=== PATIENT | female | born 1965 | race Caucasian/White ===

== ENCOUNTER 2018-02-23 12:19 | Emergency (ER) | payer BC ==
--- NOTE | 2018-02-23 13:10 | UC ---
Lower Extremity/Ankle HPI - HPI Summary HPI Summary: 52 y/o female with PMH- HTN, GERD presents after fall on while taking out trash, no STEINBERG, no LOC, denies head trauma, + left leg pain, posterior leg and left knee pain. no knee swelling, + h/o menisectomy L knee several years ago. no ankle pain. Mild hip pain, no back pain. no loss of bowel or bladder function. - History of Current Complaint Stated Complaint: S/P FALL LEFT KNEE/HIP PAIN Time Seen by Provider: 02/23/18 12:41 Hx Obtained From: Patient ?: No Onset/Duration: Sudden Onset, Lasting Days Severity Initially: Severe Severity Currently: Moderate Aggravating Factor(s): Standing, Ambulation Alleviating Factor(s): Rest, Ice, OTC Meds Able to Bear Weight: Yes - Allergies/Home Medications Allergies/Adverse Reactions: Allergies Allergy/AdvReac Type Severity Reaction Status Date / Time shellfish derived Allergy Difficulty Verified 02/23/18 13:06 Breathing Sulfa (Sulfonamide Allergy Swelling Verified 02/23/18 13:06 Antibiotics) Of Face,Lips,& Throat bees Allergy Anaphylatic Uncoded 02/23/18 13:06 Shock Home Medications: Home Medications Canagliflozin/Metformin HCl [Invokamet 150-500 mg Tablet] 1 tab BID 02/23/18 [ History Confirmed 02/23/18] Fenofibrate 1 tab DAILY 02/23/18 [History Confirmed 02/23/18] PMH/Surg Hx/FS Hx/Imm Hx Previously Healthy: Yes - Surgical History Surgical History: Yes Surgery Procedure, Year, and Place: tonsilectomy, 2 d&c's. BONE GRAFT AND EXPECTED TOOTH IMPLANT - Family History Known Family History: Negative: Cardiac Disease, Respiratory Disease - Social History Alcohol Use: Rare Substance Use Type: None Smoking Status (MU): Former Smoker Type: Cigarettes Amount Used/How Often: random Length of Time of Smoking/Using Tobacco: 20 + yrs When Did the Patient Quit Smoking/Using Tobacco: July, Review of Systems All Other Systems Reviewed And Are Negative: Yes Motor: Positive: Decreased ROM, Weakness Musculoskeletal: Positive: Decreased ROM, Myalgia Neurological: Positive: Weakness - l 4-5 toes decreased sensation Is Patient Immunocompromised?: No Physical Exam Triage Information Reviewed: Yes Appearance: Well-Appearing, Well-Nourished, Pain Distress - mild with movement, none at rest Vital Signs Reviewed: Yes Musculoskeletal: Positive: No Edema, Other: - ecchymotic area posterior thigh approximately 6x8cm, TTP, no tenderness over hamstring insertion/ origin, TT over body of hamstring, + TTP over LJL, LCL, neg lachmans, ant/ post drawer. - apley b/l, no knee effusion. no TTP over greater, lesser troch, femoral pulses 2+, neg straight leg raise. PT 2+. Decreased 3/5 strength with knee extension, abd due to pain, ROM L hip abd 45, FF90 due to pain. patellar relfexes 2+ b/l Neurological: Positive: Alert, Muscle Tone Normal, Other: - + DF/PF, sensation grossly intact distal to knee, neg achillies, Psychological Exam: Normal Skin Exam: Normal Lower Extremity Course/Dx - Course Course Of Treatment: contusion, sprain of hamstring, conservative tx, - NSAIDS, heat, rest, Ice. F/U with PCP if no improvement within 2-3 days, work note given - Differential Dx/Diagnosis Differential Diagnosis/HQI/PQRI: Cellulitis, Contusion, Infection, Osteomyelitis , Sprain, Strain, Tendonitis Provider Diagnoses: hamstring strain, LCL strain Left Discharge - Sign-Out/Discharge Documenting (check all that apply): Patient Departure All imaging exams completed and their final reports reviewed: No Studies - Discharge Plan Condition: Good Disposition: HOME Prescriptions: Naproxen [Naproxen 250 mg tab] 250 mg PO BID #60 tablet Patient Education Materials: Knee Sprain (DC), Hamstring Injury (ED) Forms: *Work Release Referrals: Suri Orosco PA [Primary Care Provider] - Additional Instructions: - NSAIDS for pain and swelling- ie Motrin, alleve. - Increase rest x 2-3 days - Increase fluid intake - Heat over hamstring to help decrease bruise - ice as needed over knee - ANNIE wrap over knee for stabilization/ comfort - Follow up with primary if no improvement within 2-3 days - GO to Er with decreased sensation, increased pain, loss of bowel/ bladder function - Billing Disposition and Condition Condition: GOOD Disposition: Home - Attestation Statements Provider Attestation: I was available for consult. This patient was seen by the [facility]. The patient was not presented to, seen by, or examined by me. -Tracy
[2018-02-23 13:13] VITALS: BP 136/76
== END 2018-02-23 13:24 | disposition home or self-care (01) ==
LOC: UCCORT 12:19
DX: S76.312A Strain of muscle, fascia and tendon of the posterior muscle group at thigh level, left thigh, initial encounter (principal); Z87.891 Personal history of nicotine dependence; S83.422A Sprain of lateral collateral ligament of left knee, initial encounter; W19.XXXA Unspecified fall, initial encounter; Y93.89 Activity, other specified; Y92.008 Other place in unspecified non-institutional (private) residence as the place of occurrence of the external cause; I10 Essential (primary) hypertension; Z88.1 Allergy status to other antibiotic agents
CPT/HCPCS: 99212; G0463

== ENCOUNTER 2018-08-28 10:48 | Emergency (ER) | payer BC ==
--- OUTSIDE RECORDS SUMMARY | 2018-08-28 11:04 | XMS REPORT | Continuity of Care Document ---
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 Suri Orosco [facility] Primary Care Physician Unavailable Payers Date Identification Numbers Payment Provider Subscriber Effective: 2002 Policy Number: [id number] Loretta Nguyễn Group Number: [id number] [address] [address] Group Name: FAVIOLA Raul FarrellMARIA ISABEL [id number] PayID: [id number] Onset: 2016 Policy Number: [id number] Neetu Nguyễn PayID: [id number] [address] [place] [address] Advance Directives Description No Information Available Problems Active Problems Provider Date Diabetes mellitus Suri Orosco [facility] Onset: 07/20/2014 Note: ~2006 Polycystic ovaries Suri Orosco [facility] Onset: 06/10/2017 Vitamin D deficiency uSri Orosco, [facility] Onset: 07/20/2014 Cataract Suri Orosco, [facility] Onset: 10/28/2014 Essential hypertension Suri Orosco [facility] Onset: 10/31/2014 Obesity Suri Orosco [facility] Onset: 10/31/2014 Thyroid nodule Suri Orosco [facility] Onset: 10/17/2015 Note: several, 2016 Gastroesophageal reflux disease Suri Orosco [facility] Onset: 01/17/2016 Polyp of colon Suri Orosco [facility] Onset: 08/05/2017 Note: hyperplastic 2018 Mixed hyperlipidemia Suri Orosco [facility] Onset: 09/09/2017 Varicose veins of lower extremity Suri Orosco [facility] Onset: 09/09/2017 Family History Date Family Member(s) Observation Comments General Breast Cancer maternal great aunt Father Unknown Mother Breast Cancer Mother 69 First Brother Alive First Brother 35 Second Brother Alive Second Brother 33 Grandfather Heart Disease Grandmother Breast Cancer Maternal Grandmother Breast Cancer Social History Type Date Description Comments Sex Unknown Marital Status Lives With Diet Patient is on a diabetic diet 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 Employed [employer] Tobacco Use Start: Unknown End: Former Cigarette Smoker quit ~2009 Unknown ETOH Use Rarely consumes alcohol Tobacco Use Start: Unknown End: Patient is a former smoked 1/2 ppd x 10 Unknown smoker to 15 years Quit 2 years ago in July Recreational Drug Use Never Used Drugs Smoking Status Reviewed: 03/12/18 Patient is a former smoked 1/2 ppd x 10 smoker to 15 years Quit 2 years ago in July Allergies, Adverse Reactions, Alerts Active Allergies Reaction Severity Comments Date Sulfa Drugs Mouth/throat swelling 01/05/2015 Bee Sting 01/05/2015 Shellfish-derived Products hives 01/05/2015 Iodine 10/29/2016 Codeine 10/29/2016 Medications Active Medications SIG Qnty Indications Ordering Date Provider Diclofenac Sodium take 1 tablet by 60tabs Alonso, 08/12/19 75mg mouth twice daily MD Fartun [address] with food Toujeo Solostar inject 162 units 90units Haines, 09/10/19 300Unit/ML subcutaneously Junaid Wilks 18 Solution Pen-Inject every evening (the quantity requested is a 90 day supply) Rosuvastatin Calcium 1 by mouth every 90tabs E78.2 Haines, 06/18/19 40mg day Junaid Wilks 18 Tablets Humalog Kwikpen 10u before meals 9ml E11.65 LitKylee العراقي, 11/13/19 100Unit/ML M.DGila 17 Solution Pen-Inject Invokamet 1 By Mouth Twice A 180tabs E11.65 Haines, 11/13/19 150-1000mg Tablets Day Junaid Wilks 17 Accu-Chek Smartview use to check fs 450units Haines, 08/09/19 Strips 3x/day Junaid Wilks 17 Trulicity inject 1.5mg sc 6ml E11.65 Haines, 08/07/19 1.5mg/0.5ML once weekly Junaid Wilks 17 Solution Pen-Inject Spironolactone 1 By Mouth Every 90tabs I10 Zaki, 08/07/19 50mg Tablets Day Junaid Wilks 17 Amlodipine Besylate take one tablet by 90tabs I10 Haines, 05/14/19 10mg mouth every day Junaid Wilks 17 Tablets Vitamin B Complex 1 by mouth every 90tabs Giancarlo Sanders 03/12/20 Tablets day E., DO 16 Epipen 2-Alexandre for immediate sq 1units Haines, 01/06/20 0.3mg/0.3ML injection to Junaid Wilks 15 Solution Auto-Inject lateral thigh in the event of shellfish exposure, may repeat in 5 min Omeprazole take one capsule by 90caps Zaki, 12/26/[address] mouth every day Junaid Wilks 15 Montelukast Sodium take one tablet by 90tabs Zaki, 12/18/19 10mg mouth every day Junaid Wilks 15 Tablets Hydrochlorothiazide take one tablet by 90tabs Zaki, 10/15/19 25mg mouth every day as Junaid Wilks 15 Tablets needed Vitamin D3 Super 3 tabs by mouth Unknown Strength every day 00 2000Unit Tablets Claritin-D 12 Hour (OTC) 1 by mouth twice a Unknown day as needed for 00 5-120mg Tablets ER 12HR congestion/allergie s History Medications Azithromycin 2 tabs by mouth 11tabs J20.9 Haines, 12/11/2017 - 250mg today, then one tab Junaid Wilks 12/22/2017 Tablets by mouth daily [place] Mahmood Solostar inject 160 units 12ml [facility], 08/08/2017 - subcutaneously every Junaid Wilks 09/09/2017 300Unit/ML Solution evening Pen-Inject Fenofibrate 1 by mouth every day 90caps E78.2 Kylee Hernández, 02/17/2017 - Micronized M.D. 06/17/2017 200mg Capsules Trulicity once sq weekly .75 4ml E11.65 Kylee Hernández, 05/14/2016 - mg M.D. 08/06/2016 0.75mg/0.5ML Solution Pen-Inject Invokamet XR 1 tab by mouth once 180tabs E11.65 Kylee Hernández, 05/14/2016 - a day M.D. 02/17/2017 150-1000mg Tablets ER 24HR Fenofibrate 1 by mouth every day 90caps E78.2 Kylee Hernández, 05/14/2016 - Micronized M.DGila 08/06/2016 200mg Capsules Atorvastatin 1 by mouth every day 90tabs E78.2 Kylee Hernández, 05/14/2016 - Calcium M.DGila 06/10/2017 40mg Tablets Metaxalone 1 tab by mouth every 30tabs M54.2 Zaki, 05/07/2016 - 800mg 6-8 hour for muscle Junaid Wilks 08/06/2016 Tablets spasm Amlodipine Besylate 1 by mouth every day 90tabs Zaki, 05/07/2016 - Junaid Wilks 05/14/2016 5mg Tablets Atorvastatin 1 by mouth every day 90tabs Giancarlo Sanders 01/25/2015 - Calcium E., DO 05/14/2016 80mg Tablets Cephalexin 1 tab (or cap) by 30tabs L03.211 Giancarlo Sanders 01/05/2015 - 500mg mouth three times a E., DO 01/25/2015 Tablets day Atorvastatin 1 by mouth every day Giancarlo Sanders 01/05/2015 - Calcium E., DO 01/25/2015 40mg Tablets Fenofibrate Take One Capsule By 90caps Giancarlo Sanders 08/14/2014 - Micronized Mouth Every Day E., DO 05/14/2016 134mg Capsules Irbesartan take one tablet by 90tabs Zaki, 08/14/2014 - 300mg mouth every day Junaid Wilks 2018 Tablets Toujeo Solostar inject 160 units 12units Zaki, - subcutaneously every Junaid Wilks 08/08/2017 300Unit/ML Solution evening Pen-Inject Naproxen take one tablet by Unknown - 250mg mouth twice a day 02/17/2017 Tablets Fenofibrate Take [facility]apsule [facility] E78.2 Zaki, - Micronized Mouth Every Day Junaid Wilks 02/17/2017 134mg Capsules Aspirin Adult Low 1 by mouth every day Unknown - Dose 11/12/[address] Mancilla 1 tab by mouth every Unknown - 300mg morning with 08/06/2016 Tablets breakfast Metformin HCL ER 1 tab by mouth every Unknown - (Osm) day 03/12/2016 500mg Tablets ER 24HR Humalog Kwikpen sliding scale 30ml Kylee Hernández, - subcutaneous with Junaid 11/12/2016 100Unit/ML Solution meals ( 20-30 units Pen-Inject daily) Victoza inject 1.8 mg into Unknown - 18mg/3ML the skin daily 03/12/2016 Solution Pen-Inject Lantus Solostar 80 units bid Unknown - 03/12/2016 100Unit/ML Solution Pen-Inject Medications Administered in Office Medication SIG Qnty Indications Ordering Provider Date [facility] Injection Immunizations CPT Code Status Date Vaccine Reaction Lot # 45230 Given 01/22/2018 Influenza Virus Vaccine, Quadrivalent, 36 Mos+, .5ML 80225 Given 09/09/2017 Pneumovax Injection none [id number] 94361 Given 02/17/2017 Influenza Virus Vaccine Quadrivalent Iiv4 [place] [id number] [address] Given 03/12/2016 Tdap injection [id number] 49694 Given 03/12/2016 Influenza Virus Vaccine Split Virus Use [id number] For Individual 3Yr Older Q2038 Given 04/17/2015 Influenza Vaccine (Fluzone) Age 3 And Older [id number] Given 04/17/2015 Influenza Virus Vaccine Split Virus Use For Individual 3Yr Older Vital Signs Date Vital Result Comment 2018 10:37am BP Systolic Sitting Right Arm 133 mmHg BP Diastolic Sitting Right Arm 76 mmHg Body Temperature 97.4 F Heart Rate 80 /min Height 67 inches 5'7" Weight 256.25 lb BMI (Body Mass Index) 40.1 kg/m2 BSA (Body Surface Area) 2.25 m2 [place] body weight in kilograms 61 kg O2 % BldC Oximetry 95 % Pain Level 4 LT Knee 03/12/2018 9:32am BP Systolic 124 mmHg BP Diastolic 74 mmHg Body Temperature 95.7 F Heart Rate 91 /min Respiratory Rate 18 /min Height 67 inches 5'7" Weight 258.50 lb BMI (Body Mass Index) 40.5 kg/m2 BSA (Body Surface Area) 2.26 m2 [place] body weight in kilograms 61 kg O2 % BldC Oximetry 96 % 12/11/2017 11:30am BP Systolic Sitting Right Arm 118 mmHg BP Diastolic Sitting Right Arm 62 mmHg Heart Rate 96 /min rapid Respiratory Rate 24 /min Height 67 inches 5'7" Weight 254.00 lb BMI (Body Mass Index) 39.8 kg/m2 BSA (Body Surface Area) 2.24 m2 [place] body weight in kilograms 61 kg O2 % BldC Oximetry 97 % ra 09/12/2017 9:42am BP Systolic 134 mmHg BP Diastolic 79 mmHg Body Temperature 96.5 F Heart Rate 87 /min Respiratory Rate 20 /min Height 67 inches 5'7" Weight 258.12 lb BMI (Body Mass Index) 40.4 kg/m2 BSA (Body Surface Area) 2.25 m2 [place] body weight in kilograms 61 kg O2 % BldC Oximetry 96 % 09/09/2017 9:41am BP Systolic Sitting Right Arm 118 mmHg BP Diastolic Sitting Right Arm 78 mmHg Body Temperature 96.4 F Heart Rate 88 /min g Respiratory Rate 20 /min Height 67 inches 5'7" Weight 260.00 lb BMI (Body Mass Index) 40.7 kg/m2 BSA (Body Surface Area) 2.26 m2 [place] body weight in kilograms 61 kg O2 % BldC Oximetry 97 % ra 06/10/2017 10:37am BP Systolic Sitting Right Arm 130 mmHg BP Diastolic Sitting Right Arm 62 mmHg Heart Rate 91 /min Height 67 inches 5'7" Weight 262.00 lb BMI (Body Mass Index) 41.0 kg/m2 BSA (Body Surface Area) 2.27 m2 [place] body weight in kilograms 61 kg O2 % BldC Oximetry 98 % ra 02/17/2017 9:51am BP Systolic 124 mmHg BP Diastolic 80 mmHg Height 67 inches 5'7" Weight 263.00 lb BMI (Body Mass Index) 41.2 kg/m2 BSA (Body Surface Area) 2.27 m2 [place] body weight in kilograms 61 kg 11/12/2016 9:20am BP Systolic 122 mmHg BP Diastolic 74 mmHg Height 67 inches 5'7" Weight 263.00 lb BMI (Body Mass Index) 41.2 kg/m2 BSA (Body Surface Area) 2.27 m2 [place] body weight in kilograms 61 kg 08/06/2016 10:11am BP Systolic 140 mmHg BP Diastolic 92 mmHg Height 67 inches 5'7" Weight 263.50 lb BMI (Body Mass Index) 41.3 kg/m2 BSA (Body Surface Area) 2.27 m2 05/14/2016 2:28pm BP Systolic 156 mmHg BP Diastolic 90 mmHg Height 67 inches 5'7" Weight 260.00 lb BMI (Body Mass Index) 40.7 kg/m2 BSA (Body Surface Area) 2.26 m2 05/07/2016 10:44am BP Systolic Sitting Right Arm 158 mmHg BP Diastolic Sitting Right Arm 100 mmHg Height 67 inches 5'7" Weight 261.12 lb BMI (Body Mass Index) 40.9 kg/m2 BSA (Body Surface Area) 2.26 m2 03/12/2016 1:14pm BP Systolic Sitting Right Arm 156 mmHg BP Diastolic Sitting Right Arm 80 mmHg Height 67 inches 5'7" Weight 261.38 lb BMI (Body Mass Index) 40.9 kg/m2 BSA (Body Surface Area) 2.27 m2 01/05/2015 9:35am BP Systolic 136 mmHg BP Diastolic 78 mmHg Height 67 inches 5'7" Weight 268.38 lb BMI (Body Mass Index) 42.0 kg/m2 BSA (Body Surface Area) 2.29 m2 Results Test Date Facility Test Result H/L Range Note Microalbumin,Random 03/12/20 [facility] Microalbumin,Urine 6.4 mg/L < 20.0 1 Urine [address] [place], [place] [id number] [phone] Glycohemoglobin A1c 03/12/20 [facility] Glycohemoglobin 6.8 % High 4.2-6.3 [address] (A1c) [place], [place] [id number] [phone] eAG 148 mg/dL LDL Cholesterol Profile 03/12/2018 [facility] Cholesterol 116 mg/dL <200 3 [address] [place] [address] [phone] Triglycerides 215 mg/dL High <150 4 HDL Cholesterol 38 mg/dL Low >40 5 LDL-Cholesterol 35 mg/dL < 100 6 Liver Function Tests 03/12/2018 [facility] Total Protein 7.0 g/dL N 6.4-8.2 [address] [place] [address] [phone] Albumin 3.9 g/dL N 3.4-5.0 Globulin 3.1 g/dL N 1.9-4.3 Alb/Glob 1.3 ratio Bilirubin,Total 0.6 mg/dL N 0.2-1.0 Bilirubin,Direct 0.2 mg/dL N 0.0-0.2 Bilirubin,Indirect 0.4 mg/dL N 0.0-0.9 Sgot/Ast 18 U/L N 15-37 SGPT/Alt 29 U/L N 12-78 Alkaline Phosphatase 104 U/L N 45-117 Renal Function Panel 03/12/2018 [facility] Glucose 148 mg/dL High 74-106 [address] [place] [address] [phone] BUN 15 mg/dL N 7-18 Creatinine 0.9 mg/dL N 0.6-1.3 Glom Filtration Rate, Estimate >60 mL/min >60 If >60 mL/min >60 7 BUN/Creat 16.6 ratio Sodium 141 mmol/L N 136-145 Potassium 4.2 mmol/L N 3.5-5.1 Chloride 107 mmol/L N 98-107 Carbon Dioxide 26 mmol/L N 21-32 Anion Gap 8 mEq/L N 8-16 Calcium 9.5 mg/dL N 8.5-10.1 Phosphorous 3.5 mg/dL N 2.5-4.0 Urine Dipstick 03/12/2018 [facility] Ua Color Yellow Yellow Ua Clarity Clear Clear Ua Leuko Negative Negative Ua Nitrite Negative Negative Ua Urobilinogen - Low 0.2 - 1.0 E.U./dL Ua Protein Negative Negative Ua PH 6.0 Low 6.5-7.5 Ua Blood Negative Negative Ua Specific [place] 1.020 1.010-1.030 Ua Ketones Negative Negative Ua Bilirubin Negative Negative Ua Glucose Positive (3+) Negative Glycohemoglobin 12/11/2017 [facility] Glycohemoglobin 7.4 % High 4.2-6.3 8, 9 A1c [address] (A1c) [place] [address] [phone] eAG 166 mg/dL Renal Function Panel 12/11/2017 [facility] Glucose 210 mg/dL High 74-106 [address] [place] [address] [phone] BUN 17 mg/dL N 7-18 Creatinine 1.0 mg/dL N 0.6-1.3 Glom Filtration Rate, Estimate >60 mL/min >60 If >60 mL/min >60 10 BUN/Creat 17.0 ratio Sodium 137 mmol/L N 136-145 Potassium 4.6 mmol/L N 3.5-5.1 Chloride 103 mmol/L N 98-107 Carbon Dioxide 26 mmol/L N 21-32 Anion Gap 8 mEq/L N 8-16 Calcium 9.7 mg/dL N 8.5-10.1 Phosphorous 3.2 mg/dL N 2.5-4.0 Albumin 3.8 g/dL N 3.4-5.0 LDL Cholesterol 09/06/2017 [facility] Cholesterol 213 mg/dL High <200 11, 12 Profile [address] [place] [address] [phone] Triglycerides 345 mg/dL High <150 13 HDL Cholesterol 35 mg/dL Low >40 14 LDL-Cholesterol 109 mg/dL < 100 15 Liver Function Tests 09/06/2017 [facility] Total Protein 6.8 g/dL N 6.4-8.2 [address] [place] [address] [phone] Albumin 3.4 g/dL N 3.4-5.0 Globulin 3.4 g/dL N 1.9-4.3 Alb/Glob 1.0 ratio Bilirubin,Total 0.4 mg/dL N 0.2-1.0 Bilirubin,Direct < 0.1 mg/dL N 0.0-0.2 Bilirubin,Indirect 0.3 mg/dL N 0.0-0.9 Sgot/Ast 16 U/L N 15-37 SGPT/Alt 25 U/L N 12-78 Alkaline Phosphatase 89 U/L N 45-117 Glycohemoglobin 09/06/2017 [facility] Glycohemoglobin 7.8 % High 4.2-6.3 16 A1c [address] (A1c) [place] [address] [phone] eAG 177 mg/dL Renal Function Panel 09/06/2017 [facility] Glucose 97 mg/dL N 74-[address] [place] [address] [phone] BUN 11 mg/dL N 7-18 Creatinine 0.8 mg/dL N 0.6-1.3 Glom Filtration Rate, Estimate >60 mL/min >60 If >60 mL/min >60 17 BUN/Creat 13.7 ratio Sodium 140 mmol/L N 136-145 Potassium 4.1 mmol/L N 3.5-5.1 Chloride 106 mmol/L N 98-107 Carbon Dioxide 28 mmol/L N 21-32 Anion Gap 6 mEq/L Low 8-16 Calcium 9.3 mg/dL N 8.5-10.1 Phosphorous 3.4 mg/dL N 2.5-4.0 Laboratory test 09/06/2017 [facility] Thyroid Stim 1.55 uIU/mL N 0.30-4.[address] [place] [address] [phone] Liver Function 06/10/2017 [facility] Total Protein 7.3 g/dL N 6.4-8.2 [address] [place] [address] [phone] Albumin 3.8 g/dL N 3.4-5.0 Globulin 3.5 g/dL N 1.9-4.3 Alb/Glob 1.1 ratio Bilirubin,Total 0.5 mg/dL N 0.2-1.0 Bilirubin,Direct < 0.1 mg/dL N 0.0-0.2 Bilirubin,Indirect 0.4 mg/dL N 0.0-0.9 Sgot/Ast 18 U/L N 15-37 SGPT/Alt 41 U/L N 12-78 Alkaline Phosphatase 100 U/L N 45-117 Microalbumin,Random 06/10/2017 [facility] Microalbumin,Urine 6.8 < [address] mg/L 20.0 [place] [address] [phone] Basic Metabolic Panel 06/10/2017 [facility] Glucose 135 High 74-[address] mg/dL 6 [place] [address] [phone] BUN 17 mg/dL N 7-18 Creatinine 0.9 mg/dL N 0.6-1.3 Glom Filtration Rate, Estimate >60 mL/min >60 If >60 mL/min >60 21 BUN/Creat 18.8 ratio Sodium 138 mmol/L N 136-145 Potassium 4.4 mmol/L N 3.5-5.1 Chloride 103 mmol/L N 98-107 Carbon Dioxide 26 mmol/L N 21-32 Anion Gap 9 mEq/L N 8-16 Calcium 9.8 mg/dL N 8.5-10.1 LDL Cholesterol 06/10/2017 [facility] Cholesterol 250 mg/dL High <200 22 Profile [address] [place] [address] [phone] Triglycerides 532 mg/dL High <150 23 HDL Cholesterol 39 mg/dL Low >40 24 LDL-Cholesterol TNP mg/dL < 100 25 Glycohemoglobin 06/10/2017 [facility] Glycohemoglobin 7.4 % High 4.2-6.3 [address] (A1c) [place] [address] [phone] eAG 166 mg/dL LDL Cholesterol 02/12/2017 [facility] Cholesterol 149 mg/dL <200 27, 28 Profile [address] [place] [address] [phone] Triglycerides 328 mg/dL High <150 29 HDL Cholesterol 42 mg/dL >40 30 LDL-Cholesterol 41 mg/dL < 100 31 CBS W/Automated Diff 02/12/2017 [facility] White Blood 8.3 K/uL N 3.1-10.[address] [place] [address] [phone] Red Blood Count 5.12 M/uL N 3.90-5.40 Hemoglobin 15.1 gm/dL N 11.6-15.8 Hematocrit 44.7 % N 36.0-46.1 Mean Cell Volume 87.3 fl N 80.9-99.0 Mean Corpuscular HGB 29.5 pg N 25.9-32.7 Mean Corpuscular HGB Conc 33.8 g/dL N 30.8-34.3 Platelet Count 275 K/uL N 150-400 Red Cell Distri Width SD 40.5 fl N 3-47 Red Cell Distri Width %CV 13.0 % N 11.7-14.4 Mean Platelet Volume 9.6 fL N 8.9-12.4 Neut% 50.6 % N 40.4-72.8 Lymph % 41.1 % N 20.0-42.0 [place]ardo % 7.3 % N 4.3-13.2 Eo% 0.8 % N 0.0-6.6 Bas% 0.2 % N 0.0-1.1 Neut# 4.19 K/uL N 1.8-7.0 Lymph # 3.41 K/uL N 1.0-4.0 F[place]ardo # 0.61 K/uL N 0.3-0.9 Eos # 0.07 K/uL N 0.0-0.5 Baso # 0.02 K/uL N 0.0-0.1 Comprehensive Metabolic 02/12/2017 [facility] Glucose 155 mg/dL High 74-106 Panel [address] [place], [place] [address] [phone] BUN 18 mg/dL N 7-18 Creatinine 1.0 mg/dL N 0.6-1.3 Glom Filtration Rate, Estimate >60 mL/min >60 If >60 mL/min >60 32 BUN/Creat 18.0 ratio Sodium 138 mmol/L N 136-145 Potassium 4.0 mmol/L N 3.5-5.1 Chloride 103 mmol/L N 98-107 Carbon Dioxide 28 mmol/L N 21-32 Anion Gap 7 mEq/L Low 8-16 Calcium 9.8 mg/dL N 8.5-10.1 Total Protein 6.9 g/dL N 6.4-8.2 Albumin 3.8 g/dL N 3.4-5.0 Globulin 3.1 g/dL N 1.9-4.3 Alb/Glob 1.2 ratio Bilirubin,Total 0.3 mg/dL N 0.2-1.0 Sgot/Ast 13 U/L Low 15-37 33 SGPT/Alt 28 U/L N 12-78 Alkaline Phosphatase 93 U/L N 45-117 Glycohemoglobin 02/12/2017 [facility] Glycohemoglobin 7.5 % High 4.2-6.3 [address] (A1c) [place] [address] [phone] eAG 169 mg/dL CBS W/Automated Diff 11/05/2016 [facility] White Blood 6.5 K/uL N 3.1-10.[address] [place] [address] [phone] Red Blood Count 5.18 M/uL N 3.90-5.40 Hemoglobin 15.1 gm/dL N 11.6-15.8 Hematocrit 45.2 % N 36.0-46.1 Mean Cell Volume 87.3 fl N 80.9-99.0 Mean Corpuscular HGB 29.2 pg N 25.9-32.7 Mean Corpuscular HGB Conc 33.4 g/dL N 30.8-34.3 Platelet Count 243 K/uL N 150-400 Red Cell Distri Width SD 42.2 fl N 3-47 Red Cell Distri Width %CV 13.6 % N 11.7-14.4 Mean Platelet Volume 10.2 fL N 8.9-12.4 Neut% 47.4 % N 40.4-72.8 Lymph % 43.1 % High 20.0-42.0 [place] % 7.4 % N 4.3-13.2 Eo% 1.8 % N 0.0-6.6 Bas% 0.3 % N 0.0-1.1 Neut# 3.08 K/uL N 1.8-7.0 Lymph # 2.80 K/uL N 1.0-4.0 [place] # 0.48 K/uL N 0.3-0.9 Eos # 0.12 K/uL N 0.0-0.5 Baso # 0.02 K/uL N 0.0-0.1 Laboratory test 11/05/2016 [facility] Testosterone,Serum 33 ng/dL 3-[address] [place] [address] [phone] Vitamin D,25-Hydroxy 23.9 ng/mL Low 30.0-100.0 35 Comprehensive Metabolic 11/05/2016 [facility] Glucose 134 mg/dL High 74-[address] [place], [place] [address] [phone] BUN 16 mg/dL N 7-18 Creatinine 0.7 mg/dL N 0.6-1.3 Glom Filtration Rate, Estimate >60 mL/min >60 If >60 mL/min >60 36 BUN/Creat 22.8 ratio Sodium 147 mmol/L High 136-145 Potassium 4.3 mmol/L N 3.5-5.1 Chloride 113 mmol/L High 98-107 Carbon Dioxide 28 mmol/L N 21-32 Anion Gap 6 mEq/L Low 8-16 Calcium 9.0 mg/dL N 8.5-10.1 Total Protein 6.7 g/dL N 6.4-8.2 Albumin 3.6 g/dL N 3.4-5.0 Globulin 3.1 g/dL N 1.9-4.3 Alb/Glob 1.2 ratio Bilirubin,Total 0.3 mg/dL N 0.2-1.0 Sgot/Ast 15 U/L N 15-37 SGPT/Alt 30 U/L N 12-78 Alkaline Phosphatase 115 U/L N 45-117 Glycohemoglobin 11/05/2016 [facility] Glycohemoglobin 7.7 % High 4.2-6.3 37 A1c [address] [facility] (A1c) [place], [place] [id number] [phone] eAG 174 mg/dL LDL Cholesterol Profile 11/05/2016 [facility] Cholesterol 152 mg/dL <200 38 [address] [place], [place] [address] [phone] Triglycerides 288 mg/dL High <150 39 HDL Cholesterol 41 mg/dL >40 40 LDL-Cholesterol 53 mg/dL < 100 41 Hgb A1c MFr Bld 08/02/2016 N2N/CCD Import Hgb A1c MFr Bld 7.3 High 4.2- 6.3 Hgb Bld-mCnc 08/02/2016 N2N/CCD Import Hgb Bld-mCnc 15.4 11.6-15.8 Lymphocytes 08/02/2016 N2N/CCD Import Lymphocytes 3.19 1.0-4.0 [#/volume] in [#/volume] in Blood by Automated Blood by Automated count count Lymphocytes/leuk 08/02/2016 N2N/CCD Import Lymphocytes/leuk 43.0 High 20.0-42.0 NFr Bld Auto NFr Bld Auto MCH RBC Qn Auto 08/02/2016 N2N/CCD Import MCH RBC Qn Auto 28.1 25.9- 32.7 MCHC RBC Auto-mCnc 08/02/2016 N2N/CCD Import MCHC RBC Auto-mCnc 33.3 30.8-34.3 MCV RBC Auto 08/02/2016 N2N/CCD Import MCV RBC Auto 84.3 80.9-99.0 Monocytes # Bld 08/02/2016 N2N/CCD Import Monocytes # Bld 0.49 0.3-0.9 Auto Auto Monocytes/leuk NFr 08/02/2016 N2N/CCD Import Monocytes/leuk NFr 6.6 4.3- 13.2 Bld Auto Bld Auto Neutrophils # Bld 08/02/2016 N2N/CCD Import Neutrophils # Bld 3.64 1.8- 7.0 Auto Auto Neutrophils/leuk 08/02/2016 N2N/CCD Import Neutrophils/leuk 49.1 40.4- 72.8 NFr Bld Auto NFr Bld Auto PMV Bld Auto 08/02/2016 N2N/CCD Import PMV Bld Auto 9.5 8.9-12.4 Platelets 08/02/2016 N2N/CCD Import Platelets 260 150-400 [#/volume] in [#/volume] in Blood by Automated Blood by Automated count count Potassium 08/02/2016 N2N/CCD Import Potassium 3.8 3.5-5.1 SerPl-sCnc SerPl-sCnc Prot SerPl-mCnc 08/02/2016 N2N/CCD Import Prot SerPl-mCnc 6.8 6.4-8.2 RBC # Bld Auto 08/02/2016 N2N/CCD Import RBC # Bld Auto 5.48 High 3.90- 5.40 RDW RBC Auto 08/02/2016 N2N/CCD Import RDW RBC Auto 41.6 3-47 RDW RBC Auto-Rto 08/02/2016 N2N/CCD Import RDW RBC Auto-Rto 13.6 11.7- 14.4 Serum or plasma 08/02/2016 N2N/CCD Import Serum or plasma 35 Low >40 cholesterol in HDL cholesterol in HDL measurement (ma measurement (mass/volume) Serum or plasma 08/02/2016 N2N/CCD Import Serum or plasma 218 High <200 cholesterol cholesterol measurement measurement (mass/volu (mass/volume) Serum or plasma 08/02/2016 N2N/CCD Import Serum or plasma 408 High <150 triglyceride triglyceride measurement measurement (mass/vol (mass/volume) Sodium SerPl-sCnc 08/02/2016 N2N/CCD Import Sodium SerPl-sCnc 141 136- 145 WBC # Bld Auto 08/02/2016 N2N/CCD Import WBC # Bld Auto 7.4 3.1-10.7 Microalbumin/Creat 08/02/2016 N2N/CCD Import Microalbumin/Creat 10.2 < 30.0 inine [Mass Ratio] inine [Mass Ratio] in Urine in Urine Urine creatinine 08/02/2016 N2N/CCD Import Urine creatinine 59 measurement measurement (mass/volume) (mass/volume) CBS W/Automated 08/02/2016 [facility] White Blood Count 7.4 K/uL N 3.1-10.7 Diff [address] [place] [address] [phone] Red Blood Count 5.48 M/uL High 3.90-5.40 Hemoglobin 15.4 gm/dL N 11.6-15.8 Hematocrit 46.2 % High 36.0-46.1 Mean Cell Volume 84.3 fl N 80.9-99.0 Mean Corpuscular HGB 28.1 pg N 25.9-32.7 Mean Corpuscular HGB Conc 33.3 g/dL N 30.8-34.3 Platelet Count 260 K/uL N 150-400 Red Cell Distri Width SD 41.6 fl N 3-47 Red Cell Distri Width %CV 13.6 % N 11.7-14.4 Mean Platelet Volume 9.5 fL N 8.9-12.4 Neut% 49.1 % N 40.4-72.8 Lymph % 43.0 % High 20.0-42.0 Fajardo % 6.6 % N 4.3-13.2 Eo% 0.9 % N 0.0-6.6 Bas% 0.4 % N 0.0-1.1 Neut# 3.64 K/uL N 1.8-7.0 Lymph # 3.19 K/uL N 1.0-4.0 Fajardo # 0.49 K/uL N 0.3-0.9 Eos # 0.07 K/uL N 0.0-0.5 Baso # 0.03 K/uL N 0.0-0.1 Comprehensive Metabolic 08/02/2016 [facility] Glucose 204 mg/dL High 74-[address] [place] [address] [phone] BUN 15 mg/dL N 7-18 Creatinine 0.9 mg/dL N 0.6-1.3 Glom Filtration Rate, Estimate >60 mL/min >60 If >60 mL/min >60 42 BUN/Creat 16.6 ratio Sodium 141 mmol/L N 136-145 Potassium 3.8 mmol/L N 3.5-5.1 Chloride 106 mmol/L N 98-107 Carbon Dioxide 29 mmol/L N 21-32 Anion Gap 6 mEq/L Low 8-16 Calcium 8.9 mg/dL N 8.5-10.1 Total Protein 6.8 g/dL N 6.4-8.2 Albumin 3.5 g/dL N 3.4-5.0 Globulin 3.3 g/dL N 1.9-4.3 Alb/Glob 1.1 ratio Bilirubin,Total 0.4 mg/dL N 0.2-1.0 Sgot/Ast 11 U/L Low 15-37 43 SGPT/Alt 26 U/L N 12-78 Alkaline Phosphatase 117 U/L N 45-117 Glycohemoglobin 08/02/2016 [facility] Glycohemoglobin 7.3 % High 4.2-6.[address] (A1c) [place], [place] [id number] [phone] eAG 163 mg/dL LDL Cholesterol 08/02/2016 [facility] Cholesterol 218 mg/dL High <200 [address] [place] [address] [phone] Triglycerides 408 mg/dL High <150 46 HDL Cholesterol 35 mg/dL Low >40 47 LDL-Cholesterol TNP mg/dL < 100 48 Microalb/Creat 08/02/2016 [facility] Microalbumin,Urine < 6.0 < 20.0 Ratio,Random [address] mg/[place] [address] [phone] Microalbumin/Creatinine Ratio 10.2 ug/mgCrt < 30.0 Urine Creatinine Conc 59 mg/dL Alp SerPl-cCnc 08/02/2016 N2N/CCD Import Alp SerPl-cCnc 117 45-117 Alt SerPl-cCnc 08/02/2016 N2N/CCD Import Alt SerPl-cCnc 26 12-78 Albumin SerPl-mCnc 08/02/2016 N2N/CCD Import Albumin SerPl-mCnc 3.5 3.4- 5.0 Albumin/Glob SerPl 08/02/2016 N2N/CCD Import Albumin/Glob SerPl 1.1 Anion Gap SerPl-sCnc 08/02/2016 N2N/CCD Import Anion Gap 6 Low 8-16 SerPl-sCnc Aspartate 08/02/2016 N2N/CCD Import Aspartate 11 Low 15-37 aminotransferase aminotransferase [Enzymatic [Enzymatic activity/vol activity/volume] in Serum or Plasma BUN SerPl-mCnc 08/02/2016 N2N/CCD Import BUN SerPl-mCnc 15 7-18 Hct VFr Bld Auto 08/02/2016 N2N/CCD Import Hct VFr Bld Auto 46.2 High 36.0-46.1 Glucose 08/02/2016 N2N/CCD Import Glucose 204 High 74-106 [Mass/volume] in [Mass/volume] in Serum or Plasma Serum or Plasma Globulin Ser 08/02/2016 N2N/CCD Import Globulin Ser 3.3 1.9-4.3 Calc-mCnc Calc-mCnc Eosinophil/leuk NFr 08/02/2016 N2N/CCD Import Eosinophil/leuk NFr 0.9 0.0-6.6 Bld Auto Bld Auto Eosinophil # Bld 08/02/2016 N2N/CCD Import Eosinophil # Bld 0.07 0.0- 0.5 Auto Auto Creat SerPl-mCnc 08/02/2016 N2N/CCD Import Creat SerPl-mCnc 0.9 0.6-1.3 Chloride SerPl-sCnc 08/02/2016 N2N/CCD Import Chloride SerPl-sCnc 106 98 -107 BUN/Creat SerPl 08/02/2016 N2N/CCD Import BUN/Creat SerPl 16.6 Basophils [#/volume] 08/02/2016 N2N/CCD Import Basophils 0.03 0.0-0.1 in Blood by [#/volume] in Blood Automated count by Automated count Basophils/leuk NFr 08/02/2016 N2N/CCD Import Basophils/leuk NFr 0.4 0.0- 1.1 Bld Auto Bld Auto Calcium SerPl-mCnc 08/02/2016 N2N/CCD Import Calcium SerPl-mCnc 8.9 8.5- 10.1 Co2 SerPl-sCnc 08/02/2016 N2N/CCD Import Co2 SerPl-sCnc 29 21-32 Blood glucose mean 08/02/2016 N2N/CCD Import Blood glucose mean 163 value measurement value measurement estimated fro estimated from glycated hemoglobin (mass/volume) Bilirub SerPl-mCnc 08/02/2016 N2N/CCD Import Bilirub SerPl-mCnc 0.4 0.2- 1.0 LDL Cholesterol 03/12/2016 [facility] Cholesterol 161 N <200 49, Profile [address] mg/dL 50 [place] [address] [phone] Triglycerides 384 mg/dL High <150 51 HDL Cholesterol 35 mg/dL Low >40 52 LDL-Cholesterol 49 mg/dL N < 100 53 Liver Function Tests 03/12/2016 [facility] Total Protein 6.8 g/dL N 6.4-8.[address] [place] [address] [phone] Albumin 3.7 g/dL N 3.4-5.0 Globulin 3.1 g/dL N 1.9-4.3 Alb/Glob 1.2 ratio N Bilirubin,Total 0.4 mg/dL N 0.2-1.0 Bilirubin,Direct < 0.1 mg/dL N 0.0-0.2 Bilirubin,Indirect 0.3 mg/dL N 0.0-0.9 Sgot/Ast 14 U/L Low 15-37 54 SGPT/Alt 23 U/L N 12-78 Alkaline Phosphatase 137 U/L High 45-117 Renal Function Panel 03/12/2016 [facility] Glucose 228 mg/dL High 74-106 [address] [place] [address] [phone] BUN 14 mg/dL N 7-18 Creatinine 0.8 mg/dL N 0.6-1.3 Glom Filtration Rate, Estimate >60 mL/min N >60 If >60 mL/min N >60 55 BUN/Creat 17.5 ratio N Sodium 141 mmol/L N 136-145 Potassium 3.7 mmol/L N 3.5-5.1 Chloride 106 mmol/L N 98-107 Carbon Dioxide 27 mmol/L N 21-32 Anion Gap 8 mEq/L N 8-16 Calcium 9.3 mg/dL N 8.5-10.1 Phosphorous 3.7 mg/dL N 2.5-4.0 Glycohemoglobin 03/12/2016 [facility] Glycohemoglobin 9.2 % High 4.2-6.3 [address] (A1c) [place] [address] [phone] eAG 217 mg/dL N Lipid Panel 09/29/2015 [facility] Cholesterol 138 mg/dL <[address] [place] [address] [phone] Triglycerides 218 mg/dL High <150 58 HDL Cholesterol 35 mg/dL Low >40 59 LDL-Cholesterol 59 mg/dL < 100 60 Liver - Hepatic 09/29/2015 [facility] Total Protein 7.2 g/dL 6.4-8.[address] [place] [address] [phone] Albumin 3.8 g/dL 3.4-5.0 Globulin 3.4 g/dL 1.9-4.3 Alb/Glob 1.1 ratio Bilirubin,Total 0.5 mg/dL 0.2-1.0 Bilirubin,Direct 0.1 mg/dL 0.0-0.2 Bilirubin,Indirect 0.4 mg/dL 0.0-0.9 Sgot/Ast 14 U/L Low 15-37 61 SGPT/Alt 40 U/L 12-78 Alkaline Phosphatase 113 U/L 45-117 Laboratory test 06/02/2015 [facility] Vitamin 27.0 Low 30.0-100.0 [address] D,25-Hydroxy ng/[place] [address] [phone] Laboratory test 06/02/2015 [facility] Thyroid Stim 1.84 0.36-3.[address] Hormone uIU/[place] [address] [phone] Glycohemoglobin 06/02/2015 [facility] Glycohemoglobin 8.0 % High 4.2-6.3 63 A1c [address] (A1c) [place] [address] [phone] eAG 183 mg/dL Comprehensive Metabolic 06/02/2015 [facility] Glucose 112 mg/dL High 74-106 Panel [address] [place] [address] [phone] BUN 15 mg/dL 7-18 Creatinine 0.9 mg/dL 0.6-1.3 Glom Filtration Rate, Estimate >60 mL/min >60 If >60 mL/min >60 64 BUN/Creat 16.6 ratio Sodium 143 mmol/L 136-145 Potassium 4.2 mmol/L 3.5-5.1 Chloride 107 mmol/L 98-107 Carbon Dioxide 26 mmol/L 21-32 Anion Gap 10 mEq/L 8-16 Calcium 8.6 mg/dL 8.5-10.1 Total Protein 6.9 g/dL 6.4-8.2 Albumin 3.6 g/dL 3.4-5.0 Globulin 3.3 g/dL 1.9-4.3 Alb/Glob 1.1 ratio Bilirubin,Total 0.5 mg/dL 0.2-1.0 Sgot/Ast 13 U/L Low 15-37 65 SGPT/Alt 26 U/L 12-78 Alkaline Phosphatase 99 U/L 45-117 Liver Function Tests 01/25/2015 [facility] Total Protein 7.0 g/dL 6.4-8.2 [address] [place] [address] [phone] Albumin 3.5 g/dL 3.4-5.0 Globulin 3.5 g/dL 1.9-4.3 Alb/Glob 1.0 ratio Bilirubin,Total 0.4 mg/dL 0.2-1.0 Bilirubin,Direct < 0.1 mg/dL 0.0-0.2 Bilirubin,Indirect 0.3 mg/dL 0.0-0.9 Sgot/Ast 15 U/L 15-37 SGPT/Alt 30 U/L 12-78 Alkaline Phosphatase 114 U/L 45-117 Basic Metabolic Panel 01/25/2015 [facility] Glucose 109 mg/dL High 74-106 [address] [place] [address] [phone] BUN 14 mg/dL 7-18 Creatinine 0.9 mg/dL 0.6-1.3 Glom Filtration Rate, Estimate >60 mL/min >60 If >60 mL/min >60 66 BUN/Creat 15.5 ratio Sodium 143 mmol/L 136-145 Potassium 3.9 mmol/L 3.5-5.1 Chloride 108 mmol/L High 98-107 Carbon Dioxide 30 mmol/L 21-32 Anion Gap 5 mEq/L Low 8-16 Calcium 9.3 mg/dL 8.5-10.1 LDL Cholesterol 01/25/2015 [facility] Cholesterol 229 mg/dL High <200 67 Profile [address] [place] [address] [phone] Triglycerides 330 mg/dL High <150 68 HDL Cholesterol 38 mg/dL Low >40 69 LDL-Cholesterol 125 mg/dL < 100 70 Laboratory test 10/28/2014 [facility] Creatinine 1.0 mg/dL 0.6-1.3 finding [address] [place] [address] [phone] Sgot/Ast 16 U/L 15-37 SGPT/Alt 28 U/L 12-78 Vitamin D,25-Hydroxy 21.0 ng/mL Low 30.0-100.0 71 Glycohemoglobin 10/28/2014 [facility] Glycohemoglobin 8.0 % High 4.2-6.3 72 A1c [address] [facility] (A1c) [place] [address] [phone] eAG 183 mg/dL Liver Function Tests 07/15/2014 [facility] Total Protein 6.9 g/dL 6.4-8.2 [address] [place] [address] [phone] Albumin 3.5 g/dL 3.4-5.0 Globulin 3.4 g/dL 1.9-4.3 Alb/Glob 1.0 ratio Bilirubin,Total 0.3 mg/dL 0.2-1.0 Bilirubin,Direct < 0.1 mg/dL 0.0-0.2 Bilirubin,Indirect 0.2 mg/dL 0.0-0.9 Sgot/Ast 14 U/L Low 15-37 73 SGPT/Alt 21 U/L 12-78 Alkaline Phosphatase 94 U/L 45-117 Laboratory test 07/15/2014 [facility] Creatinine 0.9 mg/dL 0.6-1.3 finding [address] [place] [address] [phone] LDL Cholesterol 07/15/2014 [facility] Cholesterol 155 mg/dL < 200 74 Profile [address] [place] [address] [phone] Triglycerides 150 mg/dL < 150 75 HDL Cholesterol 38 mg/dL > 40 76 LDL-Cholesterol 87 mg/dL < 100 77 Glycohemoglobin 07/15/2014 [facility] Glycohemoglobin 7.9 % High 4.2-6.3 78 A1c [address] [facility] (A1c) [place] [address] [phone] eAG 180 mg/dL Laboratory 07/15/2014 [facility] Vitamin 22.9 Low 30.0-100.0 79 test finding [address] D,25-Hydroxy ng/[place] [address] [phone] 1 E11.65 E78.2 I10 2 Elevated levels of HbA1c suggest the need for more aggressive treatment of glycemia. The [employer] recommends that a primary goal of therapy should be a HbA1c of <7% and that physicians should re-evaluate the treatment regimen in patients with HbA1c values consistently >8%. 3 Reference Guidelines*: Desirable: ........... < 200 mg/dL Borderline High: ..... 200-239 mg/dL High: ................ >=240 mg/dL * The National Cholesterol Education Program (NCEP) 4 Reference Guidelines*: Normal: ............. < 150 mg/dL Borderline High: .... 150-199 mg/dL High: ............... 200-499 mg/dL Very High: .......... > 500 mg/dL * Source: National Cholesterol Education Program (NCEP) 5 Reference Guidelines*: Low HDL: ..... < 40 mg/dL Normal: ..... 40-60 mg/dL Desirable: ... > 60 mg/dL *The National Cholesterol Education Program(NCEP) 6 Reference Guidelines*: Optimal:........... <100 mg/dL Near Optimal....... 100-129 mg/dL Borderline High.... 130-159 mg/dL High............... 160-189 mg/dL Very High.......... >=190 mg/dL * Source: National Cholesterol Education Program (NCEP) 7 Note: Persistent reduction for 3 months or more in an eGFR <60 mL/min/1.73 m2 defines CKD. Patients with eGFR values >/=60 mL/min/1.73 m2 may also have CKD if evidence of persistent proteinuria is present. The original MDRD equation for estimated GFR is not valid for patients less than 18 years of age. Additional information may be found at www.kdoqi.org. 8 E11.65 9 Elevated levels of HbA1c suggest the need for more aggressive treatment of glycemia. The [employer] recommends that a primary goal of therapy should be a HbA1c of <7% and that physicians should re-evaluate the treatment regimen in patients with HbA1c values consistently >8%. 10 Note: Persistent reduction for 3 months or more in an eGFR <60 mL/min/1.73 m2 defines CKD. Patients with eGFR values >/=60 mL/min/1.73 m2 may also have CKD if evidence of persistent proteinuria is present. The original MDRD equation for estimated GFR is not valid for patients less than 18 years of age. Additional information may be found at www.kdoqi.org. 11 E78.2, E11.65, E28.2, I10, R63.5 12 Reference Guidelines*: Desirable: ........... < 200 mg/dL Borderline High: ..... 200-239 mg/dL High: ................ >=240 mg/dL * The National Cholesterol Education Program (NCEP) 13 Reference Guidelines*: Normal: ............. < 150 mg/dL Borderline High: .... 150-199 mg/dL High: ............... 200-499 mg/dL Very High: .......... > 500 mg/dL * Source: National Cholesterol Education Program (NCEP) 14 Reference Guidelines*: Low HDL: ..... < 40 mg/dL Normal: ..... 40-60 mg/dL Desirable: ... > 60 mg/dL *The National Cholesterol Education Program(NCEP) 15 Reference Guidelines*: Optimal:........... <100 mg/dL Near Optimal....... 100-129 mg/dL Borderline High.... 130-159 mg/dL High............... 160-189 mg/dL Very High.......... >=190 mg/dL * Source: National Cholesterol Education Program (NCEP) 16 Elevated levels of HbA1c suggest the need for more aggressive treatment of glycemia. The [employer] recommends that a primary goal of therapy should be a HbA1c of <7% and that physicians should re-evaluate the treatment regimen in patients with HbA1c values consistently >8%. 17 Note: Persistent reduction for 3 months or more in an eGFR <60 mL/min/1.73 m2 defines CKD. Patients with eGFR values >/=60 mL/min/1.73 m2 may also have CKD if evidence of persistent proteinuria is present. The original MDRD equation for estimated GFR is not valid for patients less than 18 years of age. Additional information may be found at www.kdoqi.org. 18 E11.65 E78.2 19 E11.65 20 E11.65 E78.2 21 Note: Persistent reduction for 3 months or more in an eGFR <60 mL/min/1.73 m2 defines CKD. Patients with eGFR values >/=60 mL/min/1.73 m2 may also have CKD if evidence of persistent proteinuria is present. The original MDRD equation for estimated GFR is not valid for patients less than 18 years of age. Additional information may be found at www.kdoqi.org. 22 Reference Guidelines*: Desirable: ........... < 200 mg/dL Borderline High: ..... 200-239 mg/dL High: ................ >=240 mg/dL * The National Cholesterol Education Program (NCEP) 23 Reference Guidelines*: Normal: ............. < 150 mg/dL Borderline High: .... 150-199 mg/dL High: ............... 200-499 mg/dL Very High: .......... > 500 mg/dL * Source: National Cholesterol Education Program (NCEP) 24 Reference Guidelines*: Low HDL: ..... < 40 mg/dL Normal: ..... 40-60 mg/dL Desirable: ... > 60 mg/dL *The National Cholesterol Education Program(NCEP) 25 (LDL CANNOT BE CALCULATED FOR TRIGS >400 mg/dL) 26 Elevated levels of HbA1c suggest the need for more aggressive treatment of glycemia. The [employer] recommends that a primary goal of therapy should be a HbA1c of <7% and that physicians should re-evaluate the treatment regimen in patients with HbA1c values consistently >8%. 27 E11.65 28 Reference Guidelines*: Desirable: ........... < 200 mg/dL Borderline High: ..... 200-239 mg/dL High: ................ >=240 mg/dL * The National Cholesterol Education Program (NCEP) 29 Reference Guidelines*: Normal: ............. < 150 mg/dL Borderline High: .... 150-199 mg/dL High: ............... 200-499 mg/dL Very High: .......... > 500 mg/dL * Source: National Cholesterol Education Program (NCEP) 30 Reference Guidelines*: Low HDL: ..... < 40 mg/dL Normal: ..... 40-60 mg/dL Desirable: ... > 60 mg/dL *The National Cholesterol Education Program(NCEP) 31 Reference Guidelines*: Optimal:........... <100 mg/dL Near Optimal....... 100-129 mg/dL Borderline High.... 130-159 mg/dL High............... 160-189 mg/dL Very High.......... >=190 mg/dL * Source: National Cholesterol Education Program (NCEP) 32 Note: Persistent reduction for 3 months or more in an eGFR <60 mL/min/1.73 m2 defines CKD. Patients with eGFR values >/=60 mL/min/1.73 m2 may also have CKD if evidence of persistent proteinuria is present. The original MDRD equation for estimated GFR is not valid for patients less than 18 years of age. Additional information may be found at www.kdoqi.org. 33 Values below the stated reference ranges of AST and ALT can be seen in normal populations. Clinical correlation is suggested. 34 Elevated levels of HbA1c suggest the need for more aggressive treatment of glycemia. The [employer] recommends that a primary goal of therapy should be a HbA1c of <7% and that physicians should re-evaluate the treatment regimen in patients with HbA1c values consistently >8%. 35 Vitamin D deficiency has been defined by the Rick[employer] of [employer] and an Endocrine Society practice guideline as a level of serum 25-OH vitamin D less than 20 ng/mL (1,2). The Endocrine Society went on to further define vitamin D insufficiency as a level between 21 and 29 ng/mL (2). 1. IOM ([employer] of Medicine). 2010. Dietary reference intakes for calcium and D. [place]: The National Academies Press. 2. [place], [place], Estella STEINBERG, et al. Evaluation, treatment, and prevention of vitamin D deficiency: an Endocrine Society clinical practice guideline. JCEM. 2010; 96(7):1911-30. Performed at: RN - [facility] [address] [id number] Managing Consultant: Candie Fulton MD, Phone: [phone] 36 Note: Persistent reduction for 3 months or more in an eGFR <60 mL/min/1.73 m2 defines CKD. Patients with eGFR values >/=60 mL/min/1.73 m2 may also have CKD if evidence of persistent proteinuria is present. The original MDRD equation for estimated GFR is not valid for patients less than 18 years of age. Additional information may be found at www.kdoqi.org. 37 Elevated levels of HbA1c suggest the need for more aggressive treatment of glycemia. The [employer] recommends that a primary goal of therapy should be a HbA1c of <7% and that physicians should re-evaluate the treatment regimen in patients with HbA1c values consistently >8%. 38 Reference Guidelines*: Desirable: ........... < 200 mg/dL Borderline High: ..... 200-239 mg/dL High: ................ >=240 mg/dL * The National Cholesterol Education Program (NCEP) 39 Reference Guidelines*: Normal: ............. < 150 mg/dL Borderline High: .... 150-199 mg/dL High: ............... 200-499 mg/dL Very High: .......... > 500 mg/dL * Source: National Cholesterol Education Program (NCEP) 40 Reference Guidelines*: Low HDL: ..... < 40 mg/dL Normal: ..... 40-60 mg/dL Desirable: ... > 60 mg/dL *The National Cholesterol Education Program(NCEP) 41 Reference Guidelines*: Optimal:........... <100 mg/dL Near Optimal....... 100-129 mg/dL Borderline High.... 130-159 mg/dL High............... 160-189 mg/dL Very High.......... >=190 mg/dL * Source: National Cholesterol Education Program (NCEP) 42 Note: Persistent reduction for 3 months or more in an eGFR <60 mL/min/1.73 m2 defines CKD. Patients with eGFR values >/=60 mL/min/1.73 m2 may also have CKD if evidence of persistent proteinuria is present. The original MDRD equation for estimated GFR is not valid for patients less than 18 years of age. Additional information may be found at www.kdoqi.org. 43 Values below the stated reference ranges of AST and ALT can be seen in normal populations. Clinical correlation is suggested. 44 Elevated levels of HbA1c suggest the need for more aggressive treatment of glycemia. The [employer] recommends that a primary goal of therapy should be a HbA1c of <7% and that physicians should re-evaluate the treatment regimen in patients with HbA1c values consistently >8%. 45 Reference Guidelines*: Desirable: ........... < 200 mg/dL Borderline High: ..... 200-239 mg/dL High: ................ >=240 mg/dL * The National Cholesterol Education Program (NCEP) 46 Reference Guidelines*: Normal: ............. < 150 mg/dL Borderline High: .... 150-199 mg/dL High: ............... 200-499 mg/dL Very High: .......... > 500 mg/dL * Source: National Cholesterol Education Program (NCEP) 47 Reference Guidelines*: Low HDL: ..... < 40 mg/dL Normal: ..... 40-60 mg/dL Desirable: ... > 60 mg/dL *The National Cholesterol Education Program(NCEP) 48 (LDL CANNOT BE CALCULATED FOR TRIGS >400 mg/dL) 49 E78.5 E11.65 50 Reference Guidelines*: Desirable: ........... < 200 mg/dL Borderline High: ..... 200-239 mg/dL High: ................ >=240 mg/dL * The National Cholesterol Education Program (NCEP) 51 Reference Guidelines*: Normal: ............. < 150 mg/dL Borderline High: .... 150-199 mg/dL High: ............... 200-499 mg/dL Very High: .......... > 500 mg/dL * Source: National Cholesterol Education Program (NCEP) 52 Reference Guidelines*: Low HDL: ..... < 40 mg/dL Normal: ..... 40-60 mg/dL Desirable: ... > 60 mg/dL *The National Cholesterol Education Program(NCEP) 53 Reference Guidelines*: Optimal:........... <100 mg/dL Near Optimal....... 100-129 mg/dL Borderline High.... 130-159 mg/dL High............... 160-189 mg/dL Very High.......... >=190 mg/dL * Source: National Cholesterol Education Program (NCEP) 54 Values below the stated reference ranges of AST and ALT can be seen in normal populations. Clinical correlation is suggested. 55 Note: Persistent reduction for 3 months or more in an eGFR <60 mL/min/1.73 m2 defines CKD. Patients with eGFR values >/=60 mL/min/1.73 m2 may also have CKD if evidence of persistent proteinuria is present. The original MDRD equation for estimated GFR is not valid for patients less than 18 years of age. Additional information may be found at www.kdoqi.org. 56 Elevated levels of HbA1c suggest the need for more aggressive treatment of glycemia. The [employer] Association recommends that a primary goal of therapy should be a HbA1c of <7% and that physicians should re-evaluate the treatment regimen in patients with HbA1c values consistently >8%. 57 Reference Guidelines*: Desirable: ........... < 200 mg/dL Borderline High: ..... 200-239 mg/dL High: ................ >=240 mg/dL * The National Cholesterol Education Program (NCEP) 58 Reference Guidelines*: Normal: ............. < 150 mg/dL Borderline High: .... 150-199 mg/dL High: ............... 200-499 mg/dL Very High: .......... > 500 mg/dL * Source: National Cholesterol Education Program (NCEP) 59 Reference Guidelines*: Low HDL: ..... < 40 mg/dL Normal: ..... 40-60 mg/dL Desirable: ... > 60 mg/dL *The National Cholesterol Education Program(NCEP) 60 Reference Guidelines*: Optimal:........... <100 mg/dL Near Optimal....... 100-129 mg/dL Borderline High.... 130-159 mg/dL High............... 160-189 mg/dL Very High.......... >=190 mg/dL * Source: National Cholesterol Education Program (NCEP) 61 Values below the stated reference ranges of AST and ALT can be seen in normal populations. Clinical correlation is suggested. 62 Vitamin D deficiency has been defined by the Rickre[employer] of [employer] and an Endocrine Society practice guideline as a level of serum 25-OH vitamin D less than 20 ng/mL (1,2). The Endocrine Society went on to further define vitamin D insufficiency as a level between 21 and 29 ng/mL (2). 1. IOM ([employer] of Medicine). 2010. Dietary reference intakes for calcium and D. [place]: The National Academies Press. 2. [place], [place], Estella STEINBERG, et al. Evaluation, treatment, and prevention of vitamin D deficiency: an Endocrine Society clinical practice guideline. JCEM. 2010; 96(7):1911-30. Performed at: RN - [facility] [address] [id number] Managing Consultant: Candie Fulton MD, Phone: [phone] 63 Elevated levels of HbA1c suggest the need for more aggressive treatment of glycemia. The [employer] recommends that a primary goal of therapy should be a HbA1c of <7% and that physicians should re-evaluate the treatment regimen in patients with HbA1c values consistently >8%. 64 Note: Persistent reduction for 3 months or more in an eGFR <60 mL/min/1.73 m2 defines CKD. Patients with eGFR values >/=60 mL/min/1.73 m2 may also have CKD if evidence of persistent proteinuria is present. The original MDRD equation for estimated GFR is not valid for patients less than 18 years of age. Additional information may be found at www.kdoqi.org. 65 Values below the stated reference ranges of AST and ALT can be seen in normal populations. Clinical correlation is suggested. 66 Note: Persistent reduction for 3 months or more in an eGFR <60 mL/min/1.73 m2 defines CKD. Patients with eGFR values >/=60 mL/min/1.73 m2 may also have CKD if evidence of persistent proteinuria is present. The original MDRD equation for estimated GFR is not valid for patients less than 18 years of age. Additional information may be found at www.kdoqi.org. 67 Reference Guidelines*: Desirable: ........... < 200 mg/dL Borderline High: ..... 200-239 mg/dL High: ................ >=240 mg/dL * The National Cholesterol Education Program (NCEP) 68 Reference Guidelines*: Normal: ............. < 150 mg/dL Borderline High: .... 150-199 mg/dL High: ............... 200-499 mg/dL Very High: .......... > 500 mg/dL * Source: National Cholesterol Education Program (NCEP) 69 Reference Guidelines*: Low HDL: ..... < 40 mg/dL Normal: ..... 40-60 mg/dL Desirable: ... > 60 mg/dL *The National Cholesterol Education Program(NCEP) 70 Reference Guidelines*: Optimal:........... <100 mg/dL Near Optimal....... 100-129 mg/dL Borderline High.... 130-159 mg/dL High............... 160-189 mg/dL Very High.......... >=190 mg/dL * Source: National Cholesterol Education Program (NCEP) 71 Vitamin D deficiency has been defined by the [place] of Medicine and an Endocrine Society practice guideline as a level of serum 25-OH vitamin D less than 20 ng/mL (1,2). The Endocrine Society went on to further define vitamin D insufficiency as a level between 21 and 29 ng/mL (2). 1. IOM ([employer] of Medicine). 2010. Dietary reference intakes for calcium and D. [place]: The National Academies Press. 2. [place], [place], Nancy-Dameon STEINBERG, et al. Evaluation, treatment, and prevention of vitamin D deficiency: an Endocrine Society clinical practice guideline. JCEM. 2010; 96(7):1911-30. Performed at: [facility] - [facility] [address] [id number] Managing Consultant: Candie Fulton MD, Phone: [phone] 72 Elevated levels of HbA1c suggest the need for more aggressive treatment of glycemia. The Stateless Diabetes Association recommends that a primary goal of therapy should be a HbA1c of <7% and that physicians should re-evaluate the treatment regimen in patients with HbA1c values consistently >8%. 73 Values below the stated reference ranges of AST and ALT can be seen in normal populations. Clinical correlation is suggested. 74 Reference Guidelines*: Desirable: ........... < 200 mg/dL Borderline High: ..... 200-239 mg/dL High: ................ >=240 mg/dL * The National Cholesterol Education Program (NCEP) 75 Reference Guidelines*: Normal: ............. < 150 mg/dL Borderline High: .... 150-199 mg/dL High: ............... 200-499 mg/dL Very High: .......... > 500 mg/dL * Source: National Cholesterol Education Program (NCEP) 76 Reference Guidelines*: Low HDL: ..... < 40 mg/dL Normal: ..... 40-60 mg/dL Desirable: ... > 60 mg/dL *The National Cholesterol Education Program(NCEP) 77 Reference Guidelines*: Optimal:........... <100 mg/dL Near Optimal....... 100-129 mg/dL Borderline High.... 130-159 mg/dL High............... 160-189 mg/dL Very High.......... >=190 mg/dL * Source: National Cholesterol Education Program (NCEP) 78 Elevated levels of HbA1c suggest the need for more aggressive treatment of glycemia. The Stateless Diabetes Association recommends that a primary goal of therapy should be a HbA1c of <7% and that physicians should re-evaluate the treatment regimen in patients with HbA1c values consistently >8%. 79 Vitamin D deficiency has been defined by the [employer] of Medicine and an Endocrine Society practice guideline as a level of serum 25-OH vitamin D less than 20 ng/mL (1,2). The Endocrine Society went on to further define vitamin D insufficiency as a level between 21 and 29 ng/mL (2). 1. IOM ([employer] of Medicine). 2010. Dietary reference intakes for calcium and D. [place]: The National Academies Press. 2. [place], [place], Estella STEINBERG, et al. Evaluation, treatment, and prevention of vitamin D deficiency: an Endocrine Society clinical practice guideline. JCEM. 2010; 96(7):1911-30. Performed at: RN - [facility] [address] [id number] Managing Consultant: Candie Fulton MD, Phone: [phone] Procedures Date Code Description Status 2018 43548 Radiology, Distal Femur--Knee 1 Or 2 Views Completed 08/05/2017 [id number] Colonoscopy Completed 07/22/2017 93439 Eye Exam New Patient Comprehensive Completed 06/20/2017 [id number] Mammogram Completed 03/19/2016 [id number] Mammogram Completed 11/11/2014 [id number] Mammogram Completed 08/05/2012 [id number] Bone Mineral Density Test Completed Encounters Type Date Location Provider Dx Diagnosis Office Visit 2018 Orthopaedic Office [place] Mel[place] M25.562 Pain in left knee 11:00a S.PATSY M17.12 Unilateral primary osteoarthritis, left knee Office Visit 03/12/2018 9:30a Primary Care [place], E11.65 Type 2 diabetes Office PATSY Mccord mellitus with hyperglycemia E78.2 Mixed hyperlipidemia I10 Essential (primary) hypertension M25.362 Other instability, left knee Office Visit 12/11/2017 11:30a Primary [facility] [place] E11.65 Type 2 diabetes Office PATSY Mccord mellitus with hyperglycemia I10 Essential (primary) hypertension J20.9 Acute bronchitis, unspecified D48.5 Neoplasm of uncertain behavior of skin Office Visit 09/12/2017 9:45a Primary Care [place] Z11.1 Encounter for Office PATSY Mccord screening for respiratory tuberculosis Office Visit 09/09/2017 9:45a Primary Care [place] E11.65 Type 2 diabetes Office PATSY Mccord mellitus with hyperglycemia I10 Essential (primary) hypertension E78.2 Mixed hyperlipidemia I83.812 Varicose veins of left lower extremity with pain Z11.1 Encounter for screening for respiratory tuberculosis Z23 Encounter for immunization Office Visit 06/10/2017 10:45a [facility] [place], E11.65 Type 2 diabetes Office PATSY Mccord mellitus with hyperglycemia I10 Essential (primary) hypertension E78.2 Mixed hyperlipidemia Z12.31 Encntr screen mammogram for malignant neoplasm of breast M94.0 Chondrocostal junction syndrome [[place]] Office Visit 02/17/2017 9:45a Endocrinology Kylee Hernández, I10 Essential ( primary) M.D. hypertension E66.9 Obesity, unspecified E78.2 Mixed hyperlipidemia E11.65 Type 2 diabetes mellitus with hyperglycemia N95.1 Menopausal and female climacteric states E28.2 Polycystic ovarian syndrome Office Visit 11/12/2016 9:30a Endocrinology Kylee Hernández, I10 Essential ( primary) M.D. hypertension E66.9 Obesity, unspecified E78.2 Mixed hyperlipidemia E11.65 Type 2 diabetes mellitus with hyperglycemia N95.1 Menopausal and female climacteric states E28.2 Polycystic ovarian syndrome Office Visit 08/06/2016 10:15a Endocrinology Kylee Hernández, I10 Essential ( primary) M.D. hypertension E66.9 Obesity, unspecified E78.2 Mixed hyperlipidemia E11.65 Type 2 diabetes mellitus with hyperglycemia N95.1 Menopausal and female climacteric states E28.2 Polycystic ovarian syndrome Office Visit 05/14/2016 2:30p Endocrinology Kylee Hernández, I10 Essential ( primary) M.D. hypertension E66.9 Obesity, unspecified E78.2 Mixed hyperlipidemia E11.65 Type 2 diabetes mellitus with hyperglycemia Office Visit 05/07/2016 10:45a Primary Care Suri Orosco, M54.2 Cervicalgia Office [facility] M54.2 Cervicalgia Office Visit 03/12/2016 1:00p Primary Care [place] E78.5 Hyperlipidemia, Office BERTIN MccordC unspecified I10 Essential (primary) hypertension Z23 Encounter for immunization E11.65 Type 2 diabetes mellitus with hyperglycemia Office Visit 01/05/2015 9:00a Primary Care [place] E78.5 Hyperlipidemia, Office Suri RPAC unspecified I10 Essential (primary) hypertension L03.211 Cellulitis of face Office Visit 07/06/2014 9:30a Family Medicine [place], 401.[address] BERTIN MccordC Benign 272.4 Hyperlipidemia Other Unspec v16.3 History Family Malignant Neoplasm Breast 788.1 Dysuria Plan of Treatment Future Appointment(s):09/11/2018 8:30 am - Melany Ferro RPAC at Orthopaedic Rldaqx4209/01/2018 2:15 pm - Kareem Franco MD at Ophthalmology
--- OUTSIDE RECORDS SUMMARY | 2018-08-28 11:04 | XMS REPORT | Continuity of Care Document ---
:1965 External Reference #:[id number] Author Name Toribio Galicia Care Team Providers Name Role Phone Suri Orosco RPA Primary Care Physician Unavailable Payers Date Identification Numbers Payment Provider Subscriber Policy Number: [id number] BS Of LASHAWN Hodge Carlos Nguyễn PayID: [id number] [address] [address] MAR[place] ISABEL Farrell [id number] Advance Directives Description No Information Available Problems Active Problems Provider Date Essential hypertension Suri Orosco, PA Onset: 06/23/2018 Diabetes mellitus Suri Orosco PA Onset: 07/01/2018 Polycystic ovaries Suri Orosco PA Onset: 07/01/2018 Mixed hyperlipidemia Suri Orosco PA Onset: 07/01/2018 Vitamin D deficiency Suri Orosco, PA Onset: 07/01/2018 Varicose veins of lower extremity Suri Orosco PA Onset: 07/01/2018 Family History Date Family Member(s) Observation Comments Father Unknown Mother Breast Cancer Social History Type Date Description Comments Sex Unknown Marital Status Lives With Diet Patient is on a diabetic diet 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, [place] ETOH Use Rarely consumes alcohol Tobacco Use Start: Unknown End: Unknown Patient is a former smoker Quit 2009 Smoking Status Reviewed: 08/04/18 Patient is a former smoker Quit 2009 Allergies, Adverse Reactions, Alerts Active Allergies Reaction Severity Comments Date Sulfatrim Hives 08/04/2018 Bee Sting Difficulty breathing 08/04/2018 Shellfish-derived Products 08/04/2018 Medications Active Medications SIG Qnty Indications Ordering Date Provider Vitamin D3 take 1 capsule by 12caps Joao [id number] Capsules mouth daily Nancy Logan MD Aspirin 81 1 by mouth every Joao 81mg Tablets Nancy Schwartz MD Vitamin B12 1 by mouth every 90tabs Joao 100mcg Tablets day Logan, 9 Epipen 2-Alexandre as needed in event 2units 0.3mg/0.3ML of bee sting or Logan, 9 Solution Auto-Inject shellfish ingestion Trnéstority inject 1.5mg 6ml 1.5mg/0.5ML subcutaneously once Logan, 9 Solution Pen-Inject per week MD Clare Garcia 162 units sq every 13.5ml 300Unit/ML evening Logan, 9 Solution Pen-Inject Rosuvastatin Calcium 1 by mouth every 90tabs 40mg day Logan, 9 Tablets Humalog Kwikpen 10 units sq before 45ml 100Unit/ML meals three times a Logan, 9 Solution Pen-Inject day Invokamet 1 tab by mouth 180tabs 150-1000mg Tablets twice a day Logan, 9 Hydrochlorothiazide 1 by mouth every 90tabs 25mg day as needed edema Logan, 9 Tablets Amlodipine Besylate take 1 tablet daily 90tabs 10mg Logan, 9 Tablets Spironolactone take 1 tablet daily 90tabs 50mg Tablets Logan, 9 Montelukast Sodium take 1 tablet daily 90tabs 10mg Logan, 9 Tablets Candesartan Cilexetil 1/2 tab by mouth 90tabs 32mg every day Logan, 9 Tablets Omeprazole take 1 capsule 90caps 40mg Capsules DR bailey Logan, 9 MD Immunizations Description No Information Available Vital Signs Date Vital Result Comment 08/04/2018 1:20pm Height 67 inches 5'7" Weight 259.00 lb Heart Rate 80 /min BP Systolic Sitting 144 mmHg BP Diastolic Sitting 76 mmHg O2 % BldC Oximetry 97 % BMI (Body Mass Index) 40.6 kg/m2 Results Description No Information Available Procedures Date Code Description Status 08/05/2017 [id number] Colonoscopy Completed 07/22/2017 [id number] Diabetic Retinal Eye Exam Completed 06/20/2017 [id number] Mammogram Completed Encounters Description No Information Available Plan of Treatment Future Appointment(s):11/03/2018 10:00 am - [facility] [place]08/04/2018 - Suri Orosco, PAE11.9 Type 2 diabetes mellitus without complicationsNew Labs:Basic Metabolic Panel, Ordered: 08/04/18Hemoglobin A1c ( Glyco HGB), Ordered: 08/04/18I10 Essential (primary) hypertensionComments: Decrease Candesartan 32mg to 1/2 tab sfmejG33.31 Encounter for screening mammogram for malignant neoplasm ofM76.52 Patellar tendinitis, left kneeComments :Since 02/2018 slip on ice.Referral:Melany Ferro, [facility], Physician AssistantAllNew Medication:Vitamin D3 14938 Unit - take 1 capsule by mouth dailyAspirin 81 81 mg - 1 by mouth every dayVitamin B12 100 mcg - 1 by mouth every dayEpipen 2-Alexandre 0.3 mg/0.3ML - as needed in event of bee sting or shellfish ingestion
[2018-08-28 11:29] VITALS: BP 136/70
--- NOTE | 2018-08-28 12:40 | UC ---
General HPI - HPI Summary HPI Summary: 2 week hx of worsening sinus pain with pressure, congestion and yellow drainage. now c/o cough with congestion as well. hx DM and now has a mild increase in her Bs with this. no fever, cp or sob. remote hx asthma. - History of Current Complaint Chief Complaint: UCRespiratory Stated Complaint: COUGH Time Seen by Provider: 08/28/18 12:29 Hx Obtained From: Patient Onset/Duration: Gradual Onset Timing: Constant Pain Intensity: 5 - Allergy/Home Medications Allergies/Adverse Reactions: Allergies Allergy/AdvReac Type Severity Reaction Status Date / Time shellfish derived Allergy Difficulty Verified 08/28/18 11:29 Breathing Sulfa (Sulfonamide Allergy Swelling Verified 08/28/18 11:29 Antibiotics) Of Face,Lips,& Throat bees Allergy Anaphylatic Uncoded 08/28/18 11:29 Shock Home Medications: Home Medications Amlodipine Besylate [Norvasc] 10 mg PO DAILY 08/28/18 [History Confirmed ] Dulaglutide [Trulicity] 1.5 mg SQ WEEKLY 08/28/18 [History Confirmed 08/28/18] Insulin LISPRO* [HumaLOG*] 0 units SUBCUT DIRECTED 08/28/18 [History Confirmed 08/28/18] Omeprazole 40 mg PO DAILY 08/28/18 [History Confirmed 08/28/18] Rosuvastatin (NF) [Crestor (NF)] 40 mg PO DAILY 08/28/18 [History Confirmed ] Spironolactone 50 mg PO DAILY 08/28/18 [History Confirmed 08/28/18] PMH/Surg Hx/FS Hx/Imm Hx Endocrine History: Diabetes, Dyslipidemia Cardiovascular History: Hypertension - Surgical History Surgical History: Yes Surgery Procedure, Year, and Place: tonsilectomy, 2 d&c's. BONE GRAFT AND EXPECTED TOOTH IMPLANT. saphonus vein removed. L knee surger - Family History Known Family History: Negative: Cardiac Disease, Respiratory Disease - Social History Occupation: Employed Full-time Alcohol Use: Rare Substance Use Type: None Smoking Status (MU): Former Smoker Type: Cigarettes Amount Used/How Often: random Length of Time of Smoking/Using Tobacco: 20 + yrs When Did the Patient Quit Smoking/Using Tobacco: July, - Immunization History Most Recent Tetanus Shot: UTD Vaccination Up to Date: Yes Review of Systems All Other Systems Reviewed And Are Negative: Yes ENT: Positive: Sore Throat, Nasal Discharge, Sinus Congestion, Sinus Pain/ Tenderness Respiratory: Positive: Cough Physical Exam Triage Information Reviewed: Yes Appearance: Well-Appearing Vital Signs: Initial Vital Signs Temp 97.4 F 08/28/18 11:22 Pulse 79 08/28/18 11:22 Resp 16 08/28/18 11:22 BP 136/70 08/28/18 11:22 Pulse Ox 98 08/28/18 11:22 Vital Signs Reviewed: Yes Eyes: Positive: Conjunctiva Clear ENT: Positive: Pharynx normal, Nasal congestion, TMs normal, Sinus tenderness. Negative: Nasal drainage Neck: Positive: Supple, Nontender, No Lymphadenopathy Respiratory: Positive: Lungs clear, No respiratory distress, Decreased breath sounds, Other: - cough is congested. Negative: Crackles, Rhonchi, Wheezing Cardiovascular: Positive: RRR, No Murmur Abdomen Description: Positive: Nontender Musculoskeletal: Positive: ROM Intact Neurological: Positive: Alert Psychological: Positive: Age Appropriate Behavior Skin Exam: Normal Course/Dx - Diagnoses Provider Diagnosis: Sinusitis, Bronchitis Discharge - Sign-Out/Discharge Documenting (check all that apply): Patient Departure All imaging exams completed and their final reports reviewed: No Studies - Discharge Plan Condition: Stable Disposition: HOME Prescriptions: Albuterol HFA INHALER* [Ventolin HFA Inhaler*] 2 puff INH Q6H #1 mdi Amoxicillin/Clavulanate TAB* [Augmentin TAB 875*] 875 mg PO BID 10 Days #20 tab Patient Education Materials: Sinusitis (ED), Acute Bronchitis (ED) Referrals: Suri Orosco PA [Primary Care Provider] - 7 Days - Billing Disposition and Condition Condition: STABLE Disposition: Home - Attestation Statements Provider Attestation: Per institutional requirements, I have reviewed the chart, however, I was not consulted specifically or made aware of this patient by the midlevel provider. I did not personally evaluate, interact with , or disposition this patient.
== END 2018-08-28 12:54 | disposition home or self-care (01) ==
LOC: UCCORT 10:48
DX: J32.9 Chronic sinusitis, unspecified (principal); J40 Bronchitis, not specified as acute or chronic; E11.9 Type 2 diabetes mellitus without complications; Z79.4 Long term (current) use of insulin; E78.5 Hyperlipidemia, unspecified; I10 Essential (primary) hypertension; Z79.899 Other long term (current) drug therapy; Z88.2 Allergy status to sulfonamides; Z91.030 Bee allergy status; Z91.013 Allergy to seafood; Z87.891 Personal history of nicotine dependence
CPT/HCPCS: 99212; G0463